=== PATIENT | male | born 2000 | race Caucasian/White ===

== ENCOUNTER 2021-10-05 22:12 | Emergency (ER) | payer OTHER ==
[~2021-10-05] VITALS: Ht 180.3 cm; Wt 84.4 kg
[2021-10-05 22:56] VITALS: BP 123/62
--- NOTE | 2021-10-05 22:59 | NUR ---
to lobby a/w bed ambulatory
[2021-10-05] MEDS ORDERED: ONDANSETRON 4 MG ODT PO ONE (23:05)
[2021-10-05] MEDS ORDERED: ONDA4TAB PO (23:06)
--- NOTE | 2021-10-05 23:12 | NUR ---
PT SEEN, ASSESSED AND D/CD BY ERMD
[2021-10-05 23:15] VITALS: BP 123/62
--- NOTE | 2021-10-05 23:15 | NUR ---
Patient discharged with v/s stable. Written and verbal after care instructions given and explained. Patient verbalized understanding. Ambulatory with steady gait. All questions addressed prior to discharge. Advised to follow up with PMD.
== END 2021-10-05 23:15 | disposition home or self-care (01) ==
LOC: MED 22:12
DX: B34.9 Viral infection, unspecified (principal)
CPT/HCPCS: 99283; Q0162